=== PATIENT | female | born 1945 | race Caucasian/White ===

== ENCOUNTER 2017-03-04 06:46 | Day surgery (SDC) | payer MEDICARE ==
[~2017-03-04] VITALS: Ht 162.6 cm; Wt 69.2 kg
[2017-03-04] VITALS (10 sets, daily range): BP systolic 80–135; BP diastolic 49–80; PULSE 54–62; RESP 12–20; O2SAT 90–100
[~2017-03-04 06:46] MED LIST: AMIT25TA9 PO; ASPI81TA3 PO; ATEN50TA PO; CALC-83 PO; CeFAZolin 2 Gm/50 mL D5W IV Premix IV ONE; PROZ20 PO
[2017-03-04] MEDS ORDERED: EPHEDrine/NS 5 mg/mL 5 mL Syringe ONE (06:47)
[2017-03-04] MEDS ORDERED: Propofol 10,000 mCg/mL 20 mL Inj ONE (06:47)
[2017-03-04] MEDS ORDERED: fentaNYL-PF 50 mCg/mL 2 mL Inj ONE (06:47)
[2017-03-04] MEDS ORDERED: Lidocaine PF 1% 30 mL Inj ONE (06:47)
[2017-03-04] MEDS ORDERED: Ondansetron 2 mg/mL 2 mL Inj ONE (06:47)
[2017-03-04] MEDS ORDERED: Phenylephrine/NS-PF 100 mCg/mL 5 mL Syringe IVPUSH ONE (06:47)
[2017-03-04] MEDS: Lactated Ringer's 1,000 ML IV SCH ×2 (06:56→08:49)
[2017-03-04] MEDS ORDERED: AMT50T PO (07:27)
[2017-03-04] MEDS ORDERED: ASPI-973 PO (07:27)
[2017-03-04] MEDS ORDERED: FLUO20CA25 PO (07:27)
[2017-03-04] MEDS ORDERED: Lactated Ringer's 1,000 ML IV SCH (08:36)
[2017-03-04] MEDS ORDERED: Lactated Ringer's 500 ML IV PRN (08:36)
--- NOTE | 2017-03-04 08:36 | PCM.HPANE ---
Patient Data Date of Service: Mar 04, 2017 Surgeon Admitting Provider: Attending Provider:Andrea Byrd MD Primary Care Physician:Jess Rutherford Other Provider:Heather Blue Anesthesia Reason for Visit Right Long Finger Radial Sagital Band Rupture Ht/WT & BMI Height (Feet): 5 Height (Inches): 4 Weight (Kilograms): 69.2 Body Mass Index 26.00 Allergies Coded Allergies: GONZÁLEZ Inhibitors (Verified Adverse Reaction, Mild, Cough, 03/03/17) Past Anesthesia History Anesthesia History: Denies:: Abnormal Airway, Anesthesia Reactions, Difficult Intubation, Fam Anesthesia Reaction, Fam Malignant Hypertherm, Malignant Hyperthermia Diabetes History Hx Diabetes?: No Type of Diabetes: Type II Glycemic Control: Diet Controlled MRSA MRSA: No Medications Blood Thinner: Aspirin Last Dose Blood Thinner: Feb 18, 2017 Hypertension Medication: Yes Home Meds Incl Beta Allison: Yes Date Beta Allison Taken: Mar 04, 2017 Time Beta Allison Taken: 0530 Reported Medications Fluoxetine 20 Mg Ondnojl50 Mg PO DAILY Ref 0 03/04/17 Aspirin 81 Mg Hpstic35 Mg PO DAILY Ref 0 03/04/17 Amitriptyline 50 Mg Tab50 Mg PO HS Ref 0 03/04/17 Atenolol 50 Mg Forrvc60 Mg PO DAILY #30 TABLET Ref 0 03/03/17 Discontinued Reported Medications Calcium Carb/Vit D3/Minerals (Calcium 600+D Plus Minerals Tb)1 Each Tablet1 Each PO DAILY 01/13/10 Amitriptyline-Expunged Drug, Do Not Renew! 25 Mg Laqpcq15 Mg PO HS 01/13/10 Aspirin-Expunged Drug, Do Not Renew! 81 Mg Tab.chew81 Mg PO DAILY 01/13/10 FLUoxetine-Expunged Drug, Do not Renew! (Prozac-Expunged Drug, Do not Renew!)20 Mg Cap20 Mg PO DAILY 01/13/10 Oxycodone/APAP-Expunged Drug, Do Not Renew! (Percocet 5/325-Expunged Drug, Do Not Renew!)1 Each Tablet1-2 Tab PO Q4-6H PRN 01/13/10 Promethazine-Expunged Drug, Do Not Renew! (Phenergan-Expunged Drug, Do Not Renew !)25 Mg Cctxtk00 Mg PO Q4 PRN 01/13/10 Multivitamins-Expunged Drug, Do Not Renew! 1 Each Tab.chew1 Each PO DAILY 01/13/10 [Cardizem LA] No Conflict Sicrg386 Mg PO DAILY 01/13/10 Naproxen Sodium-Expunged Drug, Do Not Renew! 220 Mg Qacqjq433 Mg PO BID PRN 01/13/10 [place]-3 Fatty Acids/Fish Oil-Expunged Drug, D (Fish Oil 1,200 Mg-Expunged Drug, Do Not Renew)1 Cap Capsule1 Cap PO DAILY 01/13/10 Fish Oil-Expunged Drug, Do Not Renew! Cap1 Cap.ec 01/13/10 Simvastatin-Expunged Drug, Choose New Med! 20 Mg Bfrxfv74 Mg PO DAILY 01/13/10 Lisinopril-Expunged Drug, Do Not Renew! 20 Mg Okndnu13 Mg PO DAILY 01/13/10 History History of ENT Problems?: No HEENT History: Positive for:: Cataracts (repair 18 months ago) Denies:: Abnormal Airway Difficult Intubation Dysphagia Glaucoma Hearing Problem Sinus Problem TMJ Denture Type: Partial- Upper Partial- Lower Teeth Condition: Within Normal Limits Missing Teeth Hx of Heart Problems?: Yes Cardiovascular History: Positive for:: Hypertension Denies:: AICD Abdominal Aortic Aneurism Atrial Fibrillation Cardiac Surgery Chest Pain Congestive Heart Failure Coronary Artery Disease Edema Heart Murmur Irregular Heartbeat Pacemaker Peripheral Vascular Rheumatic Fever Thrombophlebitis Valvular Heart Disease Hx of Respiratory Problem?: Yes Respiratory History: Positive for:: Chest Surgery (Rt lung tumor removed) Denies:: Asthma COPD Cough Dyspnea Emphysema Hemoptysis Oxygen Administration Pneumonia Pulmonary Embolism Tuberculosis Use of C-PAP Machine Use of Inhalers / NEBS Hx Neurologic Problems?: No Neurological History: Denies:: Alzheimer's Disease CVA Dementia Dizziness Headaches Multiple Sclerosis Parkinson's Disease Seizures TIA Hx of GI Problems?: Yes Hx of Problems?: No Genitourinary History: Denies:: HX of Hemodialysis Kidney Stones Urinary Tract Infection HX of Peritoneal Dialysis: No Female Hx: Denies:: Currently Endometriosis Pelvic Inflammatory Problems with Breasts? Skin History: Denies:: History Skin Disorders? Pressure Ulcers Hx Musculoskeletal Problems?: Yes Musculoskeletal History: Positive for:: Osteoarthritis (hands) Denies:: Back Injury Degenerative Joint Fibromyalgia Joint Replacement Musculoskeletal Trauma Myasthenia Gravis Systemic Lupus Hx of Psycho/Social Problems?: Yes Psycho Social History: Positive for:: Anxiety Hx Surgeries?: Yes (1996 lung resection) Hx Any Other Health Problems?: Yes Other History: Positive for:: Cancer (Rt lung upper lobe resection with lymph node removal 1996) Hospitalization (Diverticulitis, 2005) Denies:: Endocrine Disease Thyroid Disease History Blood Transfusions: Positive for:: Accept Blood Products? Denies:: Blood Transfuse Reaction Blood Transfusions Hx Diabetes: No Hx Alcohol Use: YesAlcoholic Drinks Per Day: couple a week, Vodka, wineHx Substance Use: NoHave You Smoked inLast 12 mo: YesApprox How Many Cigarettes/ day: 1 ppd Stop/Bang Treated for Sleep Apnea?: No Do You Have a CPAP Machine?: No S-Snoring: Do You Snore Loudly: Yes T-Tired: feel tired, fatigued: No O-Obsered: Observed not breath: No P-Blood Pressure: treated: Yes B- Body Mass Index > 35 kg/m2: No A- Age over 50: Yes N- Neck Large Circumference: No G- Gender Male: No RONNY Total Score: 3 RONNY Risk Assessment: High Risk, =/>3 Yes Risk Assessment Category Category 1A: Patient has history of documented sleep apnea, and HAS NOT received any narcotic, sedative or anesthesia administration during this stay. Category 1B: Patient has history of documented sleep apnea, and HAS received any narcotic , sedative or anesthesia administration during this stay Category 2: Patient has SUSPECTED Obstructive Sleep Apnea, and HAS received any narcotic , sedative or anesthesia administration during this stay. Category 3: Patient has SUSPECTED Obstructive Sleep Apnea and HAS NOT received narcotic, sedative or anesthesia administration during this stay. Category 4: Outpatient in Procedural Areas with known sleep apnea or who screen positive for High Risk via the STOP/BANG questionnaire. Exam Exam Vital Signs Vital Signs Date Time Temp Pulse Resp B/P Pulse Ox O2 Delivery O2 Flow Rate FiO2 03/04/17 07:02 36.0 54 16 135/80 96 Room Air General Appearance: Alert, Oriented X3, Cooperative HEENT/AIRWAY: MP 2, Mouth Opening (Slighly small) Lungs: Clear to Auscultation, Normal Air Movement Heart: Regular Rate/Rhythm, Normal S1, Normal S2 Meds/Labs/Diagnostics Admission Meds Current Medications Lactated Ringer's (Lr) 1,000 ml @ 120 mls/hr Q8H20M IV Last administered on 6/ 30/17at 06:56; Start 03/04/17 at 05:00; Stop 03/04/17 at 13:19 Plan Impression Patient chart reviewed, patient interviewed and anesthestic plan with risks, benefits, and alternatives discussed, and informed consent obtained. NPO per Anesth. Guidelines: Yes ASA Physical Status: ASA2 Mod Systemic Disease Bene/Risks/Altern/Consents: Yes HP Complete Prior to Induction: Yes Zen Sales MD Mar 04, 2017 08:35
[2017-03-04] MEDS ORDERED: Dexamethasone 4 mg/mL Inj IVPUSH PRN (08:40)
[2017-03-04] MEDS ORDERED: HYDROmorphone 1 mg/mL Inj IVPUSH PRN (08:40)
[2017-03-04] MEDS ORDERED: hydrALAZINE 20 mg/mL Inj IVPUSH PRN (08:40)
[2017-03-04] MEDS ORDERED: Ondansetron 2 mg/mL 2 mL Inj IVPUSH PRN (08:40)
[2017-03-04] MEDS ORDERED: EPHEDrine Sulfate 50 mg/mL Inj IVPUSH PRN (08:40)
[2017-03-04] MEDS ORDERED: Phenylephrine 10,000 mCg/mL Inj IVPUSH PRN (08:40)
[2017-03-04] MEDS ORDERED: Labetalol 5 mg/mL 4 mL Inj IV PRN (08:40)
[2017-03-04] MEDS ORDERED: Albuterol-Ipratropium 3 mL Inhalation Solution NEB PRN (08:40)
[2017-03-04] MEDS ORDERED: MetoCLOpramide 5 mg/mL 2 mL Inj IVPUSH PRN (08:40)
[2017-03-04] MEDS ORDERED: Atropine 0.4 mg/mL Inj IVPUSH PRN (08:40)
[2017-03-04] MEDS ORDERED: fentaNYL-PF 50 mCg/mL 2 mL Inj IVPUSH PRN (08:40)
[2017-03-04] MEDS ORDERED: Bupivacaine-MPF 0.5% 30 mL Inj INFILTRATE ONE (09:25)
[2017-03-04] MEDS ORDERED: oxyCODONE-Acetamin 5-325 mg Tablet PO PRN (11:45)
--- NOTE | 2017-03-04 12:45 | PCM.ANEP1 ---
Post Anesthesia PACU Phase 1 Assessment Date of Service: Mar 04, 2017 Vital Signs Vital Signs Date Time Temp Pulse Resp B/P Pulse Ox O2 Delivery O2 Flow Rate FiO2 03/04/17 12:15 36.4 56 16 80/55 99 Room Air 03/04/17 12:07 56 13 100/59 95 Nasal Cannula 3 03/04/17 12:00 36.7 56 12 93/49 96 Nasal Cannula 3 03/04/17 11:55 55 12 92/50 94 Nasal Cannula 4 03/04/17 11:45 56 17 109/56 93 Nasal Cannula 4 03/04/17 11:40 56 17 112/60 90 Room Air 03/04/17 11:35 62 18 135/64 100 Simple Mask 8 03/04/17 11:32 36.3 60 20 132/63 100 Simple Mask 8 03/04/17 07:02 36.0 54 16 135/80 96 Room Air Anesthetic Administered: GA Level of Alertness: Awake, talking KELLOGG's with Equal Strength: Yes Pain: No Nausea or Vomiting: No CV Function & Hydration Stable: Yes Airway Device: Oxygen Delivery: Room Air Lungs: Normal Air Movement PACU Phase 2 Assessment Complications: No Follow up Care: N/A Patient Instructions Provided: N/A Zen Sales MD Mar 04, 2017 12:45
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
== END 2017-03-04 23:59 | disposition home or self-care (01) ==
LOC: SAS 06:46
PROVIDERS: ATTEND Orthopaedic Surgery
DX: S66.312A Strain of extensor muscle, fascia and tendon of right middle finger at wrist and hand level, initial encounter (principal); S63.652A Sprain of metacarpophalangeal joint of right middle finger, initial encounter; W22.03XA Walked into furniture, initial encounter; Y93.01 Activity, walking, marching and hiking; Y92.013 Bedroom of single-family (private) house as the place of occurrence of the external cause; I10 Essential (primary) hypertension; E11.9 Type 2 diabetes mellitus without complications; E78.5 Hyperlipidemia, unspecified; F41.8 Other specified anxiety disorders; G47.00 Insomnia, unspecified; F17.210 Nicotine dependence, cigarettes, uncomplicated
CPT/HCPCS: 26437; J0690; J2250; J2370; J2405; J3010; J7120